=== PATIENT | female | born 2000 | race Caucasian/White ===

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

== ENCOUNTER 2018-07-10 13:27 | Day surgery (SDC) | payer MEDICAID ==
[2018-07-10] MEDS ORDERED: Sodium Chloride 0.9% 1,000 ML IV ONE (14:16)
[2018-07-10] MEDS ORDERED: Ondansetron 4 MG/2 ML SDV IVPUSH ONE ×2 (14:17→16:16)
[2018-07-10] MEDS ORDERED: HYDROmorphone 2 MG/ML SDV IVPUSH ONE ×2 (14:17→15:39)
[2018-07-10] MEDS ORDERED: Iopamidol 755 Mg/ML 75 ML Bottle IV ONE (15:17)
[2018-07-10] MEDS ORDERED: Succinylcholine 200 MG/10 ML MDV IV ONE (16:16)
[2018-07-10] MEDS ORDERED: Ketorolac 30 MG/ML SDV IVPUSH ONE (16:16)
[2018-07-10] MEDS ORDERED: Lidocaine 2% 100 MG/5 ML Syringe IVPUSH ONE (16:16)
[2018-07-10] MEDS ORDERED: Propofol 200 MG/20 ML SDV IV ONE (16:16)
[2018-07-10] MEDS ORDERED: Rocuronium 100 MG/10 ML MDV IV ONE (16:16)
[2018-07-10] MEDS ORDERED: Phenylephrine 1% 10 MG/ML SDV IV ONE (16:16)
[2018-07-10] MEDS ORDERED: Dexamethasone 4 MG/ML 5 ML MDV IVPUSH ONE (16:16)
[2018-07-10] MEDS ORDERED: Lactated Ringers 1,000 ML IV ONE (16:16)
[2018-07-10] MEDS ORDERED: fentaNYL 100 MCG/2 ML SDV IV ONE (16:16)
[2018-07-10] MEDS ORDERED: cefOXitin 2 GM Vial IV ONE (16:16)
[2018-07-10] MEDS ORDERED: Glycopyrrolate 0.2 MG/ML 5 ML MDV IV ONE (16:16)
[2018-07-10] MEDS ORDERED: HYDROmorphone 2 MG/ML SDV IV ONE (16:16)
[2018-07-10] MEDS ORDERED: Sodium Chloride 0.9% 10 ML Syringe FLUSH PRN (17:03)
[2018-07-10] MEDS ORDERED: Lactated Ringers 1,000 ML IV SCH ×2 (17:15→18:45)
--- NOTE | 2018-07-10 17:16 | PCM.HP ---
H&P History of Present Illness - General Date of Service: 07/10/18 Admit Problem/Dx: Admission Diagnosis/Problem Admission Diagnosis/Problem Laparoscopic appendectomy Source of Information: Patient History Limitations: Reports: No Limitations - History of Present Illness Initial Comments - Free Text/Narative: Onset of RLQ abdominal pain since this am. CT scan shows acute appendicitis. Onset of Symptoms: Reports: Today Quality: Reports: Ache, Sharp Severity: Severe Improves with: Reports: None Worsens with: Reports: Movement Associated Symptoms: Reports: Nausea/Vomiting - Related Data Allergies/Adverse Reactions: Allergies Allergy/AdvReac Type Severity Reaction Status Date / Time No Known Allergies Allergy Verified 07/10/18 17:03 Home Medications: Home Meds Norgestrel-Ethinyl Estradiol [Cryselle-28 Tablet] 1 tab PO DAILY 07/10/18 [ History] Past Medical History - Past Surgical History HEENT Surgical History: Reports: Other (See Below) Other HEENT Surgeries/Procedures: Jaw surgery done on left side for alignment. Social & Family History - Family History Family Medical History: Noncontributory - Tobacco Use Smoking Status *Q: Never Smoker - Caffeine Use Caffeine Use: Reports: None - Recreational Drug Use Recreational Drug Use: No H&P Review of Systems - Review of Systems: Review Of Systems: See Below General: Reports: No Symptoms Pulmonary: Reports: No Symptoms Cardiovascular: Reports: No Symptoms Gastrointestinal: Reports: Abdominal Pain Genitourinary: Reports: No Symptoms Exam - Exam Exam: See Below - Vital Signs Vital Signs: Last Vital Signs Temp 98.2 F 07/10/18 13:40 Pulse 70 07/10/18 13:40 Resp 18 07/10/18 13:40 BP 100/58 L 07/10/18 13:40 Pulse Ox 99 07/10/18 13:40 Weight: 68.039 kg - Exam General: Alert, Oriented Cardiovascular: Regular Rate, Regular Rhythm GI/Abdominal Exam: Soft, No Distention, No Mass, Tender (in RLQ). No: Hernia - Patient Data Lab Results Last 24 hrs: Laboratory Results - last 24 hr 07/10/18 07/10/18 07/10/18 Range/Units 14:43 14:43 14:43 WBC 16.1 H (4.5-12.0) X10-3/uL RBC 5.02 (3.23-5.20) x10(6)uL Hgb 11.9 (11.5-15.5) g/dL Hct 35.5 (30.0-51.3) % MCV 70.6 L (80-96) fL MCH 23.6 L (27.7-33.6) pg MCHC 33.4 (32.2-35.4) g/dL RDW 15.8 H (11.5-15.5) % Plt Count 424 H (125-369) X10(3)uL Sodium 140 (135-145) mmol/L Potassium 3.4 L (3.5-5.3) mmol/L Chloride 105 (100-110) mmol/L Carbon Dioxide 24 (21-32) mmol/L BUN 12 (7-18) mg/dL Creatinine 0.8 (0.55-1.02) mg/dL Est Cr Clr Drug Dosing TNP Estimated GFR (MDRD) > 60 (>60) BUN/Creatinine Ratio 15.0 (9-20) Glucose 109 (80-116) mg/dL Lactic Acid 2.1 (0.4-2.2) mmol/L Calcium 8.7 (8.6-10.2) mg/dL Total Bilirubin 0.3 (0.1-1.3) mg/dL AST 13 (5-25) IU/L ALT 23 (12-36) U/L Alkaline Phosphatase 72 (56-112) IU/L Total Protein 7.7 (6.0-8.0) g/dL Albumin 3.5 (3.5-5.2) g/dL Globulin 4.2 g/dL Albumin/Globulin Ratio 0.8 Urine Color (YELLOW) Urine Appearance (CLEAR) Urine pH (5.0-6.5) Ur Specific [place] (1.010-1.025) Urine Protein (NEGATIVE) mg/dL Urine Glucose (UA) (NEGATIVE) mg/dL Urine Ketones (NEGATIVE) mg/dL Urine Occult Blood (NEGATIVE) Urine Nitrite (NEGATIVE) Urine Bilirubin (NEGATIVE) Urine Urobilinogen (NEGATIVE) mg/dL Ur Leukocyte Esterase (NEGATIVE) Urine RBC (0) Urine WBC (0) Ur Squamous Epith Cells (NS,R,O) Amorphous Sediment Urine Bacteria (NS) Urine HCG, Qual (NEGATIVE) 07/10/18 07/10/18 Range/Units 15:00 15:00 WBC (4.5-12.0) X10-3/uL RBC (3.23-5.20) x10(6)uL Hgb (11.5-15.5) g/dL Hct (30.0-51.3) % MCV (80-96) fL MCH (27.7-33.6) pg MCHC (32.2-35.4) g/dL RDW (11.5-15.5) % Plt Count (125-369) X10(3)uL Sodium (135-145) mmol/L Potassium (3.5-5.3) mmol/L Chloride (100-110) mmol/L Carbon Dioxide (21-32) mmol/L BUN (7-18) mg/dL Creatinine (0.55-1.02) mg/dL Est Cr Clr Drug Dosing Estimated GFR (MDRD) (>60) BUN/Creatinine Ratio (9-20) Glucose (80-116) mg/dL Lactic Acid (0.4-2.2) mmol/L Calcium (8.6-10.2) mg/dL Total Bilirubin (0.1-1.3) mg/dL AST (5-25) IU/L ALT (12-36) U/L Alkaline Phosphatase (56-112) IU/L Total Protein (6.0-8.0) g/dL Albumin (3.5-5.2) g/dL Globulin g/dL Albumin/Globulin Ratio Urine Color Yellow (YELLOW) Urine Appearance Cloudy (CLEAR) Urine pH 5.0 (5.0-6.5) Ur Specific [place] 1.025 (1.010-1.025) Urine Protein Negative (NEGATIVE) mg/dL Urine Glucose (UA) Normal (NEGATIVE) mg/dL Urine Ketones 15 H (NEGATIVE) mg/dL Urine Occult Blood Trace (NEGATIVE) Urine Nitrite Negative (NEGATIVE) Urine Bilirubin Small H (NEGATIVE) Urine Urobilinogen 1 H (NEGATIVE) mg/dL Ur Leukocyte Esterase Negative (NEGATIVE) Urine RBC 0-5 (0) Urine WBC 0-5 (0) Ur Squamous Epith Cells Occasional (NS,R,O) Amorphous Sediment Many Urine Bacteria Rare H (NS) Urine HCG, Qual Negative (NEGATIVE) Result Diagrams: 07/10/18 14:43 07/10/18 14:43 Imaging Impressions Last 24 hrs: CT scan shows acute appendicitis - Problem List (1) Appendicitis, acute SNOMED Code(s): 01667983 ICD Code: K35.80 - UNSPECIFIED ACUTE APPENDICITIS Status: Acute Current Visit: Yes Qualifiers: Acute appendicitis type: unspecified acute appendicitis type Qualified Code (s): K35.80 - Unspecified acute appendicitis Problem List Initiated/Reviewed/Updated: Yes Orders Last 24hrs: Active Orders 24 hr Category Date Time Status Patient Status [ADT] Routine ADT 07/10/18 17:03 Active Patient to Empty Bladder [RC] ASDIRECTED Care 07/10/18 17:03 Active RT Incentive Spirometry [RC] ASDIRECTED Care 07/10/18 17:03 Active Verify Patient Consent Obtain [RC] ASDIRECTED Care 07/10/18 17:03 Active Abdomen Pelvis w Cont [CT] Stat Exams 07/10/18 14:15 Taken CHLAMYDIA/GC AMPLIFICATION Routine Lab 07/10/18 15:00 Received Lactated Ringers [Ringers, Lactated] 1,000 ml Med 07/10/18 17:15 Active IV ASDIRECTED Sodium Chloride 0.9% [Saline Flush] Med 07/10/18 17:03 Active 10 ml FLUSH ASDIRECTED PRN Peripheral IV Insertion Adult [OM.PC] Routine Oth 07/10/18 17:03 Ordered Sequential Compression Device [OM.PC] Routine Oth 07/10/18 17:03 Ordered Resuscitation Status Routine Resus Stat 07/10/18 17:03 Ordered Medication Orders Lactated Ringer's (Ringers, Lactated) 1,000 mls @ 125 mls/hr IV ASDIRECTED VY Sodium Chloride (Saline Flush) 10 ml FLUSH ASDIRECTED PRN PRN Reason: Keep Vein Open Assessment/Plan Comment:: Acute Appendicitis Will proceed with lap appy, Risks and complications reviewed, consent obtained
--- NOTE | 2018-07-10 18:34 | PCM.OPNOTE ---
- General Post-Op/Procedure Note Date of Surgery/Procedure: 07/10/18 Operative Procedure(s): Lap Appy Findings: Acute Appendicitis Pre Op Diagnosis: Acute Appendicitis Post-Op Diagnosis: Same Anesthesia Technique: General ET Tube Primary Surgeon: Christopher Shah Pathology: Appendix EBL in mLs: 5 Complications: None Condition: Good
[2018-07-10] MEDS: Acetaminophen/HYDROcodone 325-5 MG Tab PO PRN (19:36)
[2018-07-10] MEDS: Morphine 2 MG/ML Syringe IVPUSH PRN ×2 (19:38→20:38)
[2018-07-10] MEDS: Ondansetron 4 MG Tab.DIS PO PRN (22:52)
--- NOTE | 2018-07-11 00:48 | OR ---
DATE OF OPERATION: 07/10/2018 SURGEON: Christopher Shah MD PREOPERATIVE DIAGNOSIS: Acute appendicitis. POSTOPERATIVE DIAGNOSIS: Acute appendicitis. PROCEDURE: Laparoscopic appendectomy. ANESTHESIA: General. DESCRIPTION OF PROCEDURE: The patient was brought to the operating room, where general endotracheal anesthesia was administered. The abdomen was prepped with ChloraPrep and draped sterilely. An infraumbilical incision was made and extended into the peritoneal cavity without difficulty. The Bettie cannulator was introduced and pneumoperitoneum obtained. 5 mm ports were placed in the suprapubic position and snf between the umbilicus and pubis. The patient was placed in Trendelenburg position and rotated to the left. Appendix was easily identified and was acutely inflamed without perforation. The mesoappendix was taken down with two applications of the Endo-HAL 2.5 mm stapler. The base of the appendix was then clearly identified with the cecum, and this was transected with an Endo-HAL 3.5 mm stapler. Appendix was brought out through the umbilical incision. Staple lines were inspected and were hemostatic. Ports were removed under direct vision and remained hemostatic. Umbilical fascia was closed with [id number] #0 Vicryl. Skin was closed with #4-0 Vicryl subcuticular sutures. Benzoin and Steri-Strips were placed, and Band-Aids applied. The patient tolerated the procedure well. Estimated blood loss was 5 mL. She returned to Postanesthesia in stable condition. /[id number] VALERIA/MOMO
[2018-07-11] MEDS: Acetaminophen/HYDROcodone 325-5 MG Tab PO PRN ×3 (04:02→12:15)
[2018-07-11] MEDS: Ondansetron 4 MG Tab.DIS PO PRN (04:02)
--- NOTE | 2018-07-11 06:38 | EDM.PDOC ---
ED HPI GENERAL MEDICAL PROBLEM - General Chief Complaint: Abdominal Pain Stated Complaint: ABD PAIN Time Seen by Provider: 07/10/18 13:45 Source of Information: Reports: Patient History Limitations: Reports: No Limitations - History of Present Illness INITIAL COMMENTS - FREE TEXT/NARRATIVE: Exam patient had the onset of sharp abdominal pain 10/10 intensity. Without diarrhea constipation but with vomiting 3 in the ED. She had a bare trace of sausage sandwich and cheeseburger lunch. Did not feel the food brother. Last menstrual period finished June. Nulligravida. And is sexually active. And uses control pill as contraception. Onset: Today Quality: Reports: Ache, Sharp Severity: Severe Improves with: Reports: None Worsens with: Reports: Movement Associated Symptoms: Reports: Nausea/Vomiting Abdominal Pain Score (Numeric/FACES): 2 - Related Data Allergies Allergy/AdvReac Type Severity Reaction Status Date / Time No Known Allergies Allergy Verified 07/10/18 17:03 Home Meds: Home Meds Norgestrel-Ethinyl Estradiol [Cryselle-28 Tablet] 1 tab PO DAILY 07/10/18 [ History] Past Medical History - Past Surgical History HEENT Surgical History: Reports: Other (See Below) Other HEENT Surgeries/Procedures: Jaw surgery done on left side for alignment. Social & Family History - Family History Family Medical History: Noncontributory - Tobacco Use Smoking Status *Q: Never Smoker - Caffeine Use Caffeine Use: Reports: None - Recreational Drug Use Recreational Drug Use: No ED ROS GENERAL - Review of Systems Review Of Systems: See Below Constitutional: Reports: No Symptoms HEENT: Reports: No Symptoms Respiratory: Reports: No Symptoms Cardiovascular: Reports: No Symptoms Endocrine: Reports: No Symptoms GI/Abdominal: Reports: Abdominal Pain : Reports: No Symptoms Musculoskeletal: Reports: No Symptoms Skin: Reports: No Symptoms Neurological: Reports: No Symptoms Hematologic/Lymphatic: Reports: No Symptoms Immunologic: Reports: No Symptoms ED EXAM, GENERAL - Physical Exam Exam: See Below Free Text/Narrative:: This a pleasant slightly overweight alert woman with moderate distress and appropriately communicative. Exam Limited By: No Limitations General Appearance: Alert, WD/WN, Moderate Distress Eye Exam: Bilateral Eye: Normal Inspection Ears: Normal External Exam, Normal Canal, Hearing Grossly Normal, Normal TMs Ear Exam: Bilateral Ear: Auricle Normal, Canal Normal, TM normal Nose: Normal Inspection Throat/Mouth: Normal Inspection, Normal Lips, Normal Teeth, Normal Gums, Normal Oropharynx, Normal Voice, Other (Good dental hygiene dry mucosa) Head: Atraumatic, Normocephalic Neck: Normal Inspection, Supple, Non-Tender, Full Range of Motion Respiratory/Chest: No Respiratory Distress, Lungs Clear, Normal Breath Sounds, No Accessory Muscle Use, Chest Non-Tender Cardiovascular: Normal Peripheral Pulses, Regular Rate, Rhythm, No Edema, No Gallop, No JVD, No Murmur, No Rub Peripheral Pulses: 1+: Radial (L), Radial (R) GI/Abdominal: Soft, No Distention, No Mass, Tender (in RLQ), Other (General this guarding lower quadrant with mild to moderate rebound tenderness and heeltap tenderness with positive psoas sign bilateral legs). No: Hernia (Female) Exam: Deferred Rectal (Female) Exam: Deferred Neurological: Alert, Oriented, CN II-XII Intact, Normal Cognition, Normal Gait, No Motor/Sensory Deficits Psychiatric: Normal Affect, Normal Mood Skin Exam: Warm, Dry, Intact, Normal Color Lymphatic: No Adenopathy ED GENERAL MEDICAL PROCEDURES - Additional/Other Procedure(s) Other (Free Text) Procedure(s): CAT scan revealed appendicitis with 11 mm diameter appendix with appendiceal swelling without free air or ascites or suggestion of perforation Course - Vital Signs Last Recorded V/S: Last Vital Signs Temp 36.6 C 07/11/18 00:15 Pulse 68 07/11/18 04:00 Resp 20 07/11/18 00:15 BP 95/56 L 07/11/18 04:00 Pulse Ox 96 07/11/18 00:15 - Orders/Labs/Meds Orders: Active Orders 24 hr Category Date Time Status Patient Status [ADT] Routine ADT 07/10/18 17:03 Active RT Incentive Spirometry [RC] ASDIRECTED Care 07/10/18 17:03 Active Up ad Brittney [RC] ASDIRECTED Care 07/10/18 18:34 Active Vital Signs [RC] PER UNIT ROUTINE Care 07/10/18 18:34 Active Clear Liquid Diet [DIET] Diet 07/11/18 Breakfast Ordered Abdomen Pelvis w Cont [CT] Stat Exams 07/10/18 14:15 Taken CHLAMYDIA/GC AMPLIFICATION Routine Lab 07/10/18 15:00 Received Acetaminophen/HYDROcodone [[place] 325-5 MG] Med 07/10/18 18:34 Active 1 tab PO Q4H PRN Lactated Ringers [Ringers, Lactated] 1,000 ml Med 07/10/18 17:15 Active IV ASDIRECTED Lactated Ringers [Ringers, Lactated] 1,000 ml Med 07/10/18 18:45 Active IV ASDIRECTED Morphine Med 07/10/18 18:34 Active 2 mg IVPUSH Q1H PRN Ondansetron [Zofran ODT] Med 07/10/18 22:20 Active 4 mg PO Q6H PRN Sodium Chloride 0.9% [Saline Flush] Med 07/10/18 17:03 Active 10 ml FLUSH ASDIRECTED PRN Peripheral IV Insertion Adult [OM.PC] Routine Oth 07/10/18 17:03 Ordered Sequential Compression Device [OM.PC] Routine Oth 07/10/18 17:03 Ordered Medication Orders Hydrocodone Bitart/Acetaminophen ([place] 325-5 Mg) 1 tab PO Q4H PRN PRN Reason: Pain (mild 1-3) Last Admin: 07/11/18 04:02 Dose: 1 tab Admin: 07/10/18 19:36 Dose: 1 tab Lactated Ringer's (Ringers, Lactated) 1,000 mls @ 125 mls/hr IV ASDIRECTED [facility] Last Admin: 07/10/18 17:28 Dose: 125 mls/hr Lactated Ringer's (Ringers, Lactated) 1,000 mls @ 125 mls/hr IV ASDIRECTED [facility] Last Admin: 07/11/18 00:03 Dose: 125 mls/hr Morphine Sulfate (Morphine) 2 mg IVPUSH Q1H PRN PRN Reason: Pain (severe 7-10) Last Admin: 07/10/18 20:38 Dose: 2 mg Admin: 07/10/18 19:38 Dose: 2 mg Ondansetron HCl (Zofran Odt) 4 mg PO Q6H PRN PRN Reason: Nausea/Vomiting Last Admin: 07/11/18 04:02 Dose: 4 mg Admin: 07/10/18 22:52 Dose: 4 mg Sodium Chloride (Saline Flush) 10 ml FLUSH ASDIRECTED PRN PRN Reason: Keep Vein Open Labs: Laboratory Tests 07/10/18 07/10/1807/10/19 Range/Units 14:43 14:43 14:43 WBC 16.1 H (4.5-12.0) X10-3/uL RBC 5.02 (3.23-5.20) x10(6)uL Hgb 11.9 (11.5-15.5) g/dL Hct 35.5 (30.0-51.3) % MCV 70.6 L (80-96) fL MCH 23.6 L (27.7-33.6) pg MCHC 33.4 (32.2-35.4) g/dL RDW 15.8 H (11.5-15.5) % Plt Count 424 H (125-369) X10(3)uL Sodium 140 (135-145) mmol/L Potassium 3.4 L (3.5-5.3) mmol/L Chloride 105 (100-110) mmol/L Carbon Dioxide 24 (21-32) mmol/L BUN 12 (7-18) mg/dL Creatinine 0.8 (0.55-1.02) mg/dL Est Cr Clr Drug Dosing TNP Estimated GFR (MDRD) > 60 (>60) BUN/Creatinine Ratio 15.0 (9-20) Glucose 109 (80-116) mg/dL Lactic Acid 2.1 (0.4-2.2) mmol/L Calcium 8.7 (8.6-10.2) mg/dL Total Bilirubin 0.3 (0.1-1.3) mg/dL AST 13 (5-25) IU/L ALT 23 (12-36) U/L Alkaline Phosphatase 72 (56-112) IU/L Total Protein 7.7 (6.0-8.0) g/dL Albumin 3.5 (3.5-5.2) g/dL Globulin 4.2 g/dL Albumin/Globulin Ratio 0.8 Urine Color (YELLOW) Urine Appearance (CLEAR) Urine pH (5.0-6.5) Ur Specific [place] (1.010-1.025) Urine Protein (NEGATIVE) mg/dL Urine Glucose (UA) (NEGATIVE) mg/dL Urine Ketones (NEGATIVE) mg/dL Urine Occult Blood (NEGATIVE) Urine Nitrite (NEGATIVE) Urine Bilirubin (NEGATIVE) Urine Urobilinogen (NEGATIVE) mg/dL Ur Leukocyte Esterase (NEGATIVE) Urine RBC (0) Urine WBC (0) Ur Squamous Epith Cells (NS,R,O) Amorphous Sediment Urine Bacteria (NS) Urine HCG, Qual (NEGATIVE) 07/10/18 07/10/18 Range/Units 15:00 15:00 WBC (4.5-12.0) X10-3/uL RBC (3.23-5.20) x10(6)uL Hgb (11.5-15.5) g/dL Hct (30.0-51.3) % MCV (80-96) fL MCH (27.7-33.6) pg MCHC (32.2-35.4) g/dL RDW (11.5-15.5) % Plt Count (125-369) X10(3)uL Sodium (135-145) mmol/L Potassium (3.5-5.3) mmol/L Chloride (100-110) mmol/L Carbon Dioxide (21-32) mmol/L BUN (7-18) mg/dL Creatinine (0.55-1.02) mg/dL Est Cr Clr Drug Dosing Estimated GFR (MDRD) (>60) BUN/Creatinine Ratio (9-20) Glucose (80-116) mg/dL Lactic Acid (0.4-2.2) mmol/L Calcium (8.6-10.2) mg/dL Total Bilirubin (0.1-1.3) mg/dL AST (5-25) IU/L ALT (12-36) U/L Alkaline Phosphatase (56-112) IU/L Total Protein (6.0-8.0) g/dL Albumin (3.5-5.2) g/dL Globulin g/dL Albumin/Globulin Ratio Urine Color Yellow (YELLOW) Urine Appearance Cloudy (CLEAR) Urine pH 5.0 (5.0-6.5) Ur Specific [place] 1.025 (1.010-1.025) Urine Protein Negative (NEGATIVE) mg/dL Urine Glucose (UA) Normal (NEGATIVE) mg/dL Urine Ketones 15 H (NEGATIVE) mg/dL Urine Occult Blood Trace (NEGATIVE) Urine Nitrite Negative (NEGATIVE) Urine Bilirubin Small H (NEGATIVE) Urine Urobilinogen 1 H (NEGATIVE) mg/dL Ur Leukocyte Esterase Negative (NEGATIVE) Urine RBC 0-5 (0) Urine WBC 0-5 (0) Ur Squamous Epith Cells Occasional (NS,R,O) Amorphous Sediment Many Urine Bacteria Rare H (NS) Urine HCG, Qual Negative (NEGATIVE) Meds: Medications Generic Name Dose Route Start Last Admin Trade Name Noreen PRN Reason Stop Dose Admin Hydrocodone Bitart/Acetaminophen 1 tab 07/10/18 18:34 07/11/18 04:02 [place] 325-5 Mg PO 1 tab Q4H PRN Administration Pain (mild 1-3) Lactated Ringer's 1,000 mls @ 125 mls/hr 07/10/18 17:15 07/10/18 17:28 Ringers, Lactated IV 125 mls/hr ASDIRECTED [facility] Administration Lactated Ringer's 1,000 mls @ 125 mls/hr 07/10/18 18:45 07/11/18 00:03 Ringers, Lactated IV 125 mls/hr ASDIRECTED VY Administration Morphine Sulfate 2 mg 07/10/18 18:34 07/10/18 20:38 Morphine IVPUSH 2 mg Q1H PRN Administration Pain (severe 7-10) Ondansetron HCl 4 mg 07/10/18 22:20 07/11/18 04:02 Zofran Odt PO 4 mg Q6H PRN Administration Nausea/Vomiting Sodium Chloride 10 ml 07/10/18 17:03 Saline Flush FLUSH ASDIRECTED PRN Keep Vein Open Discontinued Medications Generic Name Dose Route Start Last Admin Trade Name Noreen PRN Reason Stop Dose Admin Hydromorphone HCl 1 mg 07/10/18 14:17 07/10/18 14:57 Dilaudid IVPUSH 07/10/18 14:18 1 mg ONETIME ONE Administration Hydromorphone HCl 1 mg 07/10/18 15:39 07/10/18 15:47 Dilaudid IVPUSH 07/10/18 15:40 1 mg ONETIME ONE Administration Sodium Chloride 1,000 mls @ 999 mls/hr 07/10/18 14:16 07/10/18 14:23 Normal Saline IV 07/10/18 15:16 999 mls/hr .BOLUS ONE Administration Iopamidol 75 ml 07/10/18 15:17 07/10/18 15:29 Isovue-370 (76%) IV 07/10/18 15:18 75 ml ONETIME ONE Administration Ondansetron HCl 4 mg 07/10/18 14:17 07/10/18 14:57 Zofran IVPUSH 07/10/18 14:18 4 mg ONETIME ONE Administration Departure - Departure Time of Disposition: 15:45 (Was discussed with Dr. Shah at 1600 patient to go to surgery at 1700) Disposition: Admitted As Inpatient 64 Condition: Fair Clinical Impression: Appendicitis Qualifiers: Appendicitis type: acute appendicitis Acute appendicitis type: with localized peritonitis Appendicitis gangrene presence: without gangrene Appendicitis perforation presence: without perforation Appendicitis abscess presence: without abscess Qualified Code(s): K35.30 - Acute appendicitis with localized peritonitis, without perforation or gangrene - Discharge Information *PRESCRIPTION DRUG MONITORING PROGRAM REVIEWED*: Not Applicable *COPY OF PRESCRIPTION DRUG MONITORING REPORT IN PATIENT LITO: Not Applicable - My Orders Last 24 Hours: My Active Orders 07/10/18 14:15 Abdomen Pelvis w Cont [CT] Stat 07/10/18 15:00 CHLAMYDIA/GC AMPLIFICATION Routine - Assessment/Plan Last 24 Hours: My Active Orders 07/10/18 14:15 Abdomen Pelvis w Cont [CT] Stat 07/10/18 15:00 CHLAMYDIA/GC AMPLIFICATION Routine
--- NOTE | 2018-07-11 08:38 | CT ---
INDICATION: Bilateral lower abdominal pain. Patient is vomiting. White blood count elevated at 16.1. CT ABDOMEN AND PELVIS WITH CONTRAST: Spiral 2.5 mm axial sections were obtained through the abdomen and pelvis with IV contrast only (75 mm Isovue 370 at 2 mm per second) with sagittal and coronal reconstructions 07/10/18. No comparisons were available. Total exam DLP = 1089.55 mGy-cm. The lower lung edmondson and pleural spaces as visualized appeared normal. The heart is normal in size. No pericardial effusion was seen. There were no gallstones demonstrated in the gallbladder. The liver appeared essentially normal with a probable tiny cyst in the posterior right lobe seen on axial image #47. No significant appearing liver lesions were seen. Liver density and size appeared to be normal. The spleen, and the pancreas, appeared to be normal. No definite renal abnormalities were seen with no evidence of obstructive uropathy or masses identified. No evidence of pyelonephritis was seen. The adrenal glands appeared normal. No peritoneal masses were identified. The appendix is definitely enlarged at 11 mm and shows evidence of some very minimal periappendiceal fat stranding suggesting early--minimal peritonitis. No abscess formation. No fluid collection was seen. No urine or ovarian abnormalities were suggested. In general no additional organomegaly, mass lesions, bowel obstruction could be identified in the abdomen of pelvis. IMPRESSION: 1. Findings are compatible with early appendicitis with very minimal peritonitis. Report was called to Dr. Sands at 1557 hours. [facility]
[2018-07-11 08:43] VITALS: BP 110/66
--- NOTE | 2018-07-11 12:41 | PCM.SURGPN ---
- General Info Date of Service: 07/11/18 POD#: 1 Functional Status: Reports: Pain Controlled, Tolerating Diet, Ambulating - Review of Systems General: Reports: No Symptoms - Patient Data Vitals - Most Recent: Last Vital Signs Temp 98.5 F 07/11/18 07:45 Pulse 110 H 07/11/18 07:45 Resp 18 07/11/18 07:45 BP 110/66 07/11/18 07:45 Pulse Ox 97 07/11/18 07:45 Weight - Most Recent: 68.039 kg I&O - Last 24 Hours: Intake & Output 07/10/18 07/11/18 07/11/18 22:59 06:59 14:59 Intake Total 1124 Output Total 300 Balance 824 Lab Results Last 24 Hrs: Laboratory Results - last 24 hr 07/10/18 07/10/18 07/10/18 Range/Units 14:43 14:43 14:43 WBC 16.1 H (4.5-12.0) X10-3/uL RBC 5.02 (3.23-5.20) x10(6)uL Hgb 11.9 (11.5-15.5) g/dL Hct 35.5 (30.0-51.3) % MCV 70.6 L (80-96) fL MCH 23.6 L (27.7-33.6) pg MCHC 33.4 (32.2-35.4) g/dL RDW 15.8 H (11.5-15.5) % Plt Count 424 H (125-369) X10(3)uL Sodium 140 (135-145) mmol/L Potassium 3.4 L (3.5-5.3) mmol/L Chloride 105 (100-110) mmol/L Carbon Dioxide 24 (21-32) mmol/L BUN 12 (7-18) mg/dL Creatinine 0.8 (0.55-1.02) mg/dL Est Cr Clr Drug Dosing TNP Estimated GFR (MDRD) > 60 (>60) BUN/Creatinine Ratio 15.0 (9-20) Glucose 109 (80-116) mg/dL Lactic Acid 2.1 (0.4-2.2) mmol/L Calcium 8.7 (8.6-10.2) mg/dL Total Bilirubin 0.3 (0.1-1.3) mg/dL AST 13 (5-25) IU/L ALT 23 (12-36) U/L Alkaline Phosphatase 72 (56-112) IU/L Total Protein 7.7 (6.0-8.0) g/dL Albumin 3.5 (3.5-5.2) g/dL Globulin 4.2 g/dL Albumin/Globulin Ratio 0.8 Urine Color (YELLOW) Urine Appearance (CLEAR) Urine pH (5.0-6.5) Ur Specific [place] (1.010-1.025) Urine Protein (NEGATIVE) mg/dL Urine Glucose (UA) (NEGATIVE) mg/dL Urine Ketones (NEGATIVE) mg/dL Urine Occult Blood (NEGATIVE) Urine Nitrite (NEGATIVE) Urine Bilirubin (NEGATIVE) Urine Urobilinogen (NEGATIVE) mg/dL Ur Leukocyte Esterase (NEGATIVE) Urine RBC (0) Urine WBC (0) Ur Squamous Epith Cells (NS,R,O) Amorphous Sediment Urine Bacteria (NS) Urine HCG, Qual (NEGATIVE) 07/10/18 07/10/18 Range/Units 15:00 15:00 WBC (4.5-12.0) X10-3/uL RBC (3.23-5.20) x10(6)uL Hgb (11.5-15.5) g/dL Hct (30.0-51.3) % MCV (80-96) fL MCH (27.7-33.6) pg MCHC (32.2-35.4) g/dL RDW (11.5-15.5) % Plt Count (125-369) X10(3)uL Sodium (135-145) mmol/L Potassium (3.5-5.3) mmol/L Chloride (100-110) mmol/L Carbon Dioxide (21-32) mmol/L BUN (7-18) mg/dL Creatinine (0.55-1.02) mg/dL Est Cr Clr Drug Dosing Estimated GFR (MDRD) (>60) BUN/Creatinine Ratio (9-20) Glucose (80-116) mg/dL Lactic Acid (0.4-2.2) mmol/L Calcium (8.6-10.2) mg/dL Total Bilirubin (0.1-1.3) mg/dL AST (5-25) IU/L ALT (12-36) U/L Alkaline Phosphatase (56-112) IU/L Total Protein (6.0-8.0) g/dL Albumin (3.5-5.2) g/dL Globulin g/dL Albumin/Globulin Ratio Urine Color Yellow (YELLOW) Urine Appearance Cloudy (CLEAR) Urine pH 5.0 (5.0-6.5) Ur Specific [place] 1.025 (1.010-1.025) Urine Protein Negative (NEGATIVE) mg/dL Urine Glucose (UA) Normal (NEGATIVE) mg/dL Urine Ketones 15 H (NEGATIVE) mg/dL Urine Occult Blood Trace (NEGATIVE) Urine Nitrite Negative (NEGATIVE) Urine Bilirubin Small H (NEGATIVE) Urine Urobilinogen 1 H (NEGATIVE) mg/dL Ur Leukocyte Esterase Negative (NEGATIVE) Urine RBC 0-5 (0) Urine WBC 0-5 (0) Ur Squamous Epith Cells Occasional (NS,R,O) Amorphous Sediment Many Urine Bacteria Rare H (NS) Urine HCG, Qual Negative (NEGATIVE) Med Orders - Current: Current Medications Hydrocodone Bitart/Acetaminophen ([place] 325-5 Mg) 1 tab PO Q4H PRN PRN Reason: Pain (mild 1-3) Last Admin: 07/11/18 12:15 Dose: 1 tab Lactated Ringer's (Ringers, Lactated) 1,000 mls @ 125 mls/hr IV ASDIRECTED [facility] Last Admin: 07/10/18 17:28 Dose: 125 mls/hr Lactated Ringer's (Ringers, Lactated) 1,000 mls @ 125 mls/hr IV ASDIRECTED [facility] Last Admin: 07/11/18 00:03 Dose: 125 mls/hr Morphine Sulfate (Morphine) 2 mg IVPUSH Q1H PRN PRN Reason: Pain (severe 7-10) Last Admin: 07/10/18 20:38 Dose: 2 mg Ondansetron HCl (Zofran Odt) 4 mg PO Q6H PRN PRN Reason: Nausea/Vomiting Last Admin: 07/11/18 04:02 Dose: 4 mg Sodium Chloride (Saline Flush) 10 ml FLUSH ASDIRECTED PRN PRN Reason: Keep Vein Open Discontinued Medications Hydromorphone HCl (Dilaudid) 1 mg IVPUSH ONETIME ONE Stop: 07/10/18 14:18 Last Admin: 07/10/18 14:57 Dose: 1 mg Hydromorphone HCl (Dilaudid) 1 mg IVPUSH ONETIME ONE Stop: 07/10/18 15:40 Last Admin: 07/10/18 15:47 Dose: 1 mg Sodium Chloride (Normal Saline) 1,000 mls @ 999 mls/hr IV .BOLUS ONE Stop: 07/10/18 15:16 Last Admin: 07/10/18 14:23 Dose: 999 mls/hr Iopamidol (Isovue-370 (76%)) 75 ml IV ONETIME ONE Stop: 07/10/18 15:18 Last Admin: 07/10/18 15:29 Dose: 75 ml Ondansetron HCl (Zofran) 4 mg IVPUSH ONETIME ONE Stop: 07/10/18 14:18 Last Admin: 07/10/18 14:57 Dose: 4 mg - Exam Wound/Incisions: Healing Well General: Alert, Oriented GI/Abdominal Exam: Soft, Non-Tender - Problem List & Annotations (1) Appendicitis, acute SNOMED Code(s): 54066154 Code(s): K35.80 - UNSPECIFIED ACUTE APPENDICITIS Status: Acute Current Visit: Yes Qualifiers: Acute appendicitis type: unspecified acute appendicitis type Qualified Code (s): K35.80 - Unspecified acute appendicitis - Problem List Review Problem List Initiated/Reviewed/Updated: Yes - My Orders Last 24 Hours: Active Orders 24 hr Category Date Time Status Patient Status [ADT] Routine ADT 07/10/18 17:03 Active RT Incentive Spirometry [RC] ASDIRECTED Care 07/10/18 17:03 Active Up ad Brittney [RC] ASDIRECTED Care 07/10/18 18:34 Active Vital Signs [RC] PER UNIT ROUTINE Care 07/10/18 18:34 Active Clear Liquid Diet [DIET] Diet 07/11/18 Breakfast Ordered CHLAMYDIA/GC AMPLIFICATION Routine Lab 07/10/18 15:00 Received Acetaminophen/HYDROcodone [[place] 325-5 MG] Med 07/10/18 18:34 Active 1 tab PO Q4H PRN Lactated Ringers [Ringers, Lactated] 1,000 ml Med 07/10/18 17:15 Active IV ASDIRECTED Lactated Ringers [Ringers, Lactated] 1,000 ml Med 07/10/18 18:45 Active IV ASDIRECTED Morphine Med 07/10/18 18:34 Active 2 mg IVPUSH Q1H PRN Ondansetron [Zofran ODT] Med 07/10/18 22:20 Active 4 mg PO Q6H PRN Sodium Chloride 0.9% [Saline Flush] Med 07/10/18 17:03 Active 10 ml FLUSH ASDIRECTED PRN Peripheral IV Insertion Adult [OM.PC] Routine Oth 07/10/18 17:03 Ordered Sequential Compression Device [OM.PC] Routine Oth 07/10/18 17:03 Ordered Medication Orders Hydrocodone Bitart/Acetaminophen ([place] 325-5 Mg) 1 tab PO Q4H PRN PRN Reason: Pain (mild 1-3) Last Admin: 07/11/18 12:15 Dose: 1 tab Admin: 07/11/18 08:15 Dose: 1 tab Admin: 07/11/18 04:02 Dose: 1 tab Admin: 07/10/18 19:36 Dose: 1 tab Lactated Ringer's (Ringers, Lactated) 1,000 mls @ 125 mls/hr IV ASDIRECTED [facility] Last Admin: 07/10/18 17:28 Dose: 125 mls/hr Lactated Ringer's (Ringers, Lactated) 1,000 mls @ 125 mls/hr IV ASDIRECTED [facility] Last Admin: 07/11/18 00:03 Dose: 125 mls/hr Morphine Sulfate (Morphine) 2 mg IVPUSH Q1H PRN PRN Reason: Pain (severe 7-10) Last Admin: 07/10/18 20:38 Dose: 2 mg Admin: 07/10/18 19:38 Dose: 2 mg Ondansetron HCl (Zofran Odt) 4 mg PO Q6H PRN PRN Reason: Nausea/Vomiting Last Admin: 07/11/18 04:02 Dose: 4 mg Admin: 07/10/18 22:52 Dose: 4 mg Sodium Chloride (Saline Flush) 10 ml FLUSH ASDIRECTED PRN PRN Reason: Keep Vein Open - Assessment Assessment (Free Text/Narrative):: Doing well - Plan Plan (Free Text/Narrative):: Ok to discharge, f/u in 1 week
[2018-07-13 10:16] LABS: CHLAMYDIA TRACHOMATIS, NAA Negative (Negative); NEISSERIA GONORRHOEAE, NAA Negative (Negative)
== END 2018-07-11 15:00 ==
LOC: FB.ED 13:27 → FB.MS 16:15 → FB.SDS 16:15 → FB.MS 19:13 → FB.SDS 19:13 → FB.MS 07-11 15:00
PROVIDERS: ATTEND Surgery
DX: K35.80 Unspecified acute appendicitis (principal)
CPT/HCPCS: 36415; 74177; 80053; 81001; 81025; 83605; 85027; 87491; 87591; 88304; 96361; 96374; 96375; 96376; 99284; A9270-GY; J0330; J0694; J1100; J1170; J1885; J2001; J2270; J2370; J2405; J2704; J3010; J3490; J7030; J7120; Q9967